=== PATIENT | male | born 1980 | race Caucasian/White ===

== ENCOUNTER 2021-02-09 04:52 | Emergency (ER) | payer OTHER ==
[~2021-02-09] VITALS: Ht 165.1 cm; Wt 61.2 kg
[2021-02-09] MEDS ORDERED: VISTARIL 25 MG25 M1 PO (04:59)
[2021-02-09] MEDS ORDERED: DESYREL150 MG PO (04:59)
[2021-02-09] MEDS ORDERED: DOXYCYCLINE 10100 MG PO (06:22)
[2021-02-09] MEDS ORDERED: PREDNISONE 20 M20 M1 PO (06:22)
[2021-02-09 06:56] VITALS: BP 150/95
== END 2021-02-09 06:56 | disposition home or self-care (01) ==
LOC: M.ERS 04:52
DX: L27.0 Generalized skin eruption due to drugs and medicaments taken internally (principal); T36.8X5A Adverse effect of other systemic antibiotics, initial encounter; M25.561 Pain in right knee; F17.210 Nicotine dependence, cigarettes, uncomplicated; Z88.1 Allergy status to other antibiotic agents; Z88.2 Allergy status to sulfonamides; Y92.89 Other specified places as the place of occurrence of the external cause